=== PATIENT | female | born 1990 | race Caucasian/White ===

== ENCOUNTER 2021-09-23 09:58 | Inpatient (IN) | payer BC ==
[2021-09-23] MEDS ORDERED: Lidocaine 1% (PF) 30 ML VIAL SC PRN (09:59)
[2021-09-23] MEDS ORDERED: Misoprostol 200 MCG TAB PR PRN (09:59)
[2021-09-23] MEDS ORDERED: Ibuprofen 800 MG TAB PO PRN (09:59)
[2021-09-23] MEDS ORDERED: Docusate 100 MG CAP PO PRN (09:59)
[2021-09-23] MEDS ORDERED: HYDROcodone/Acetaminophen 5/325 mg Tablet PO PRN ×4 (09:59→19:36)
[2021-09-23] MEDS ORDERED: Promethazine HCl 25 MG/ML VIAL IM PRN (09:59)
[2021-09-23] MEDS ORDERED: Ondansetron PF 4 MG/2 ML Vial IVP PRN ×2 (09:59→19:36)
[2021-09-23] MEDS ORDERED: Butorphanol Tartrate 1 MG/ML VIAL SLOW IVP PRN (09:59)
[2021-09-23] MEDS ORDERED: Acetaminophen 500 MG TAB PO PRN (09:59)
[2021-09-23] MEDS ORDERED: hydrALAZINE 20 MG/ML VIAL SLOW IVP PRN ×2 (09:59→19:36)
[2021-09-23] MEDS ORDERED: Diphenoxylate HCl/Atropine Tablet PO PRN ×2 (09:59)
[2021-09-23] MEDS ORDERED: Penicillin G Potassium 5 MILL.UNITS in Sodium Chloride 0.9% 100 ML IVPB SCH (10:00)
[2021-09-23] MEDS ORDERED: NS w/ Oxytocin 30 units 500 ML IV SCH ×3 (10:00→19:45)
[2021-09-23] MEDS: Lactated Ringer's 1,000 ML IV SCH (10:25)
[2021-09-23] MEDS ORDERED: Penicillin G Potassium 5 MILL.UNITS VIAL ONE (10:39)
[2021-09-23 11:04] LABS: Hemoglobin 13.5 g/dL (12.0-15.5); Mean Corpuscular HGB CONC 36.6 g/dL (32.0-36.0); Mean Corpuscular Hemoglobin 32.4 pg (27.0-33.0); Mean Corpuscular Volume 88.5 fl (81.6-98.3); Mean Platelet Volume 11.1 fl (7.4-10.4); Platelet Count 181 10x3/uL (150-450); RBC Distribution Width 13.3 % (11.5-14.5); Red Blood Cell (RBC) Count 4.17 10x6/uL (3.90-5.03); White Blood Cell (WBC) Count 10.1 10x3/uL (3.5-10.5)
[2021-09-23 11:15] VITALS: BMI 29.4
[2021-09-23 11:40] LABS: SARS-CoV-2 NAA Rapid Test Not Detected (NotDetected)
[2021-09-23 11:46] LABS: Syphilis Antibody Nonreactive (Nonreactive); Syphilis Antibody Index 0.04 S/CO (<1.00 Non-Reactive)
[2021-09-23 11:47] LABS: HIV (1/2) Antibody/Antigen Non-Reactive (NonReactive); HIV 1/2 INDEX 0.07 S/CO (<1.00); Hep B Surf Ag Non-Reactive S/CO (NonReactive)
[2021-09-23 11:57] LABS: HBSAg Index 0.16 S/CO (0-0.99)
[2021-09-23] MEDS: Penicillin G 2.5 MILL.units 2.5 MILL.UNITS in Premix Bag 1 BAG IVPB SCH (14:25)
[2021-09-23] MEDS ORDERED: Lanolin Ointment 7 GM TUBE TOP PRN (19:36)
[2021-09-23] MEDS ORDERED: Milk Of Magnesia 30 ML UDCUP PO PRN (19:36)
[2021-09-23] MEDS ORDERED: Misoprostol 200 MCG TAB VAG PRN (19:36)
[2021-09-23] MEDS ORDERED: Benzocaine-Menthol 82.5 ML CAN TOP PRN (19:36)
[2021-09-23] MEDS ORDERED: Zolpidem Tartrate 5 MG TAB PO PRN (19:36)
[2021-09-23] MEDS ORDERED: Bisacodyl 10 MG SUPP PR PRN (19:36)
[2021-09-23] MEDS ORDERED: Boostrix 0.5 ML (Tdap) VIAL IM ONE (19:36)
[2021-09-23] MEDS ORDERED: Preparation H Ointment 28 GM TUBE PR PRN (19:36)
[2021-09-23] MEDS ORDERED: diphenhydrAMINE 25 MG CAP PO PRN (19:36)
[2021-09-23] MEDS ORDERED: Witch Hazel-Glycerin 1 EACH JAR TOP PRN (19:38)
[2021-09-23] MEDS: Ibuprofen 800 MG TAB PO SCH (22:23)
[2021-09-24] MEDS: Docusate 100 MG CAP PO SCH ×3 (00:08→21:44)
[2021-09-24] MEDS: Penicillin G 2.5 MILL.units 2.5 MILL.UNITS in Premix Bag 1 BAG IVPB SCH ×2 (00:09→00:10)
[2021-09-24] MEDS: Lactated Ringer's 1,000 ML IV SCH (00:10)
[2021-09-24] MEDS: Ibuprofen 800 MG TAB PO SCH ×3 (06:04→21:44)
[2021-09-24] MEDS: Ferrous Sulfate 325 MG TAB PO SCH ×2 (08:40→14:35)
[2021-09-24] MEDS: Prenatal Vitamin 1 TAB PO SCH (08:46)
[2021-09-25 04:45] VITALS: TEMP 97.7
[2021-09-25] MEDS: Ibuprofen 800 MG TAB PO SCH ×2 (05:53→14:54)
[2021-09-25 07:57] VITALS: BP 123/65
[2021-09-25] MEDS: Ferrous Sulfate 325 MG TAB PO SCH (09:00)
[2021-09-25] MEDS: Prenatal Vitamin 1 TAB PO SCH (09:08)
[2021-09-25] MEDS: Docusate 100 MG CAP PO SCH (09:08)
== END 2021-09-25 17:00 | disposition home or self-care (01) | DRG 806 ==
LOC: CSHLD 09:58 → CSHPP 21:55
PROVIDERS: ADMIT Obstetrics & Gynecology; ATTEND Obstetrics & Gynecology
PROC: 10E0XZZ Delivery of Products of Conception, External Approach (ICD-10-PCS; principal; 2021-09-23)
DX: O99.284 Endocrine, nutritional and metabolic diseases complicating childbirth (principal); D68.59 Other primary thrombophilia; Z37.0 Single live birth; O99.12 Other diseases of the blood and blood-forming organs and certain disorders involving the immune mechanism complicating childbirth; Z20.822 Contact with and (suspected) exposure to COVID-19; Z3A.37 37 weeks gestation of pregnancy; O99.824 Streptococcus B carrier state complicating childbirth; E03.9 Hypothyroidism, unspecified; Z79.890 Hormone replacement therapy; Z79.899 Other long term (current) drug therapy; Z79.82 Long term (current) use of aspirin
CPT/HCPCS: 36415; 85027; 86780; 86850; 86900; 86901; 87340; 87389; J2540; J2590; J7120; U0002